=== PATIENT | male | born 2000 | race Caucasian/White ===

== ENCOUNTER 2023-01-23 10:07 | Emergency (ER) | payer OTHER ==
[~2023-01-23] VITALS: Ht 185.4 cm; Wt 88.6 kg
[2023-01-23 10:08] VITALS: BP 122/60; TEMP 98.1
[2023-01-23 12:17] LABS: BASO # 0.1 10^3/uL (0.0-0.2); BASO % 0.7 % (0.0-1.0); EOS # 0.1 10^3/uL (0.0-0.5); EOS % 1.5 % (0.0-3.0); HEMATOCRIT 45.4 % (42.0-52.0); HEMOGLOBIN 15.2 g/dl (13.5-17.5); LYMPH # 2.5 10^3/uL (1.5-5.0); LYMPH % 33.7 % (24.0-44.0); MEAN CORPUSCULAR HEMOGLOBIN 30.5 pg (27.0-33.0); MEAN CORPUSCULAR HGB CONC 33.5 g/dl (32.0-36.5); MEAN CORPUSCULAR VOLUME 91.2 fl (80.0-96.0); MONO # 0.4 10^3/uL (0.0-0.8); MONO % 5.9 % (2.0-8.0); NEUTROPHILS # 4.4 10^3/uL (1.5-8.5); NEUTROPHILS % 58.1 % (36.0-66.0); PLATELET COUNT, AUTOMATED 251 10^3/uL (150-450); RED BLOOD COUNT 4.98 10^6/uL (4.30-6.10); WHITE BLOOD COUNT 7.5 10^3/uL (4.0-10.0)
[2023-01-23 12:39] LABS: LIPASE 29 U/L (12-53)
[2023-01-23 12:41] LABS: ALBUMIN 4.3 G/DL (3.2-5.2); ALKALINE PHOSPHATASE 103 U/L (46-116); ALT/SGPT 18 U/L (7.0-40); AST/SGOT 12 U/L (<34); BILIRUBIN,DIRECT 0.3 MG/DL (<0.4); BILIRUBIN,TOTAL 0.7 MG/DL (0.3-1.2); BLOOD UREA NITROGEN 10 MG/DL (9-23); CALCIUM LEVEL 9.3 MG/DL (8.5-10.1); CARBON DIOXIDE LEVEL 30 MMOL/L (20-31); CHLORIDE LEVEL 105 MMOL/L (98-107); CREATININE FOR GFR 0.99 MG/DL (0.70-1.30); GLUCOSE, FASTING 86 MG/DL (60-100); POTASSIUM SERUM 4.2 MMOL/L (3.5-5.1); SODIUM LEVEL 140 MMOL/L (136-145); TOTAL PROTEIN 7.1 G/DL (5.7-8.2)
[2023-01-23] MEDS ORDERED: ISOVUE-370 76% 100ML VIAL As Ordered ONE (13:27)
[2023-01-23 15:26] VITALS: O2SAT 98
== END 2023-01-23 15:02 | disposition home or self-care (01) ==
LOC: M ED 10:07
DX: R10.31 Right lower quadrant pain (principal); F17.200 Nicotine dependence, unspecified, uncomplicated
CPT/HCPCS: 36415; 74177; 80048; 80076; 83690; 85025; 99284; Q9967

== ENCOUNTER → 2023-09-05 | Outpatient (CLI) | payer OTHER ==
[~2023-09-05] MED LIST: ISOVUE-300 61% 100ML VIAL As Ordered ONE; LIDOCAINE 1% MDV 20ML VIAL As Ordered ONE; PROHANCE 279.3MG/ML 5ML VIAL As Ordered ONE
== END ==
LOC: M RAD 12:25
PROVIDERS: ATTEND Physician Assistant Surgical
DX: M24.111 Other articular cartilage disorders, right shoulder (principal); M25.811 Other specified joint disorders, right shoulder
CPT/HCPCS: 23350; 73223; 77002; A9576; Q9967

== ENCOUNTER 2023-12-13 06:09 | Day surgery (SDC) | payer OTHER ==
[~2023-12-13] VITALS: Ht 185.4 cm; Wt 89.4 kg
[~2023-12-13 06:09] MED LIST changes: -ISOVUE-300 61% 100ML VIAL As Ordered ONE; -LIDOCAINE 1% MDV 20ML VIAL As Ordered ONE; -PROHANCE 279.3MG/ML 5ML VIAL As Ordered ONE; +TRANEXAMIC ACID 100 MG/ML 10ML VIAL IV ONE
[2023-12-13] MEDS ORDERED: LR 1,000 ML IV SCH ×2 (06:35→12:00)
[2023-12-13] MEDS: LIDOCAINE 1% SDV 5ML VIAL PN ONE (07:10)
[2023-12-13] MEDS: dexAMETHasone 10MG/1ML VIAL PRES.FREE PN ONE (07:10)
[2023-12-13] MEDS: ROPIvacaine 0.5% 30ML VIAL PN ONE (07:10)
[2023-12-13] MEDS ORDERED: propofoL 200 MG/20 ML VIAL As Ordered ONE (07:11)
[2023-12-13] MEDS ORDERED: ROCURONIUM BROMIDE 50MG/5ML VIAL As Ordered ONE (07:11)
[2023-12-13] MEDS ORDERED: MIDAZOLAM INJ 2MG/2ML VIAL As Ordered ONE (07:11)
[2023-12-13] MEDS ORDERED: fentaNYL 250 MCG/5 ML INJECTION As Ordered ONE (07:11)
[2023-12-13] MEDS ORDERED: LIDOCAINE 2% 100MG/5ML SDV (FOR ANES.) As Ordered ONE (07:11)
[2023-12-13] MEDS: EPINEPHrine INJ 1 MG/ML 1ML AMP As Ordered ONE (07:15)
[2023-12-13] MEDS: MIDAZOLAM INJ 2MG/2ML VIAL IV PRN (07:18)
[2023-12-13] MEDS: fentaNYL 100 MCG/2 ML INJECTION IV PRN (07:18)
[2023-12-13] MEDS: VANCOMYCIN 500MG/10ML VIAL As Ordered ONE (07:19)
[2023-12-13] MEDS ORDERED: VANCOMYCIN 1000MG/20ML VIAL As Ordered ONE (07:33)
[2023-12-13] MEDS: ceFAZolin SOD 2 GM in IV 1 EA IV ONE (08:50)
[2023-12-13] MEDS: TRANEXAMIC ACID 100 MG/ML 10ML VIAL As Ordered ONE (09:04)
[2023-12-13] MEDS ORDERED: ACETAMINOPHEN 1000MG 100ML IV BAG As Ordered ONE (09:27)
[2023-12-13] MEDS ORDERED: SUGAMMADEX SODIUM 500 MG/5 ML VIAL (BRIDION) As Ordered ONE (09:27)
[2023-12-13] MEDS ORDERED: ONDANSETRON 4MG 2ML VIAL As Ordered ONE (09:28)
[2023-12-13] MEDS ORDERED: PHENYLephrine 500MCG 5ML (100MCG/ML) SYRINGE As Ordered ONE (10:02)
[2023-12-13] MEDS: EPINEPHrine 1MG/ML INJ 30ML MD-VIAL As Ordered ONE (11:33)
[2023-12-13] MEDS ORDERED: HYDROMORPHONE HCL 0.5 MG/ 0.5 ML SYRINGE IV PRN (12:00)
[2023-12-13] MEDS ORDERED: fentaNYL 100 MCG/2 ML INJECTION IV PRN (12:00)
[2023-12-13] MEDS ORDERED: oxyCODONE 5MG TAB PO PRN (12:00)
[2023-12-13] MEDS: ONDANSETRON 4MG 2ML VIAL IV PRN (12:24)
[2023-12-13] MEDS: METOCLOPRAMIDE INJ 10MG/2ML VIAL IV ONE (12:40)
[2023-12-13] MEDS: diphenhydrAMINE 50MG/ML VIAL IV PRN (13:30)
[2023-12-13 15:00] VITALS: BP 130/70; TEMP 97.6; O2SAT 100
== END 2023-12-13 15:25 | disposition home or self-care (01) ==
LOC: M SDC 06:09
PROVIDERS: ATTEND Orthopaedic Surgery
DX: S43.431A Superior glenoid labrum lesion of right shoulder, initial encounter (principal); M19.011 Primary osteoarthritis, right shoulder; M65.9 Synovitis and tenosynovitis, unspecified; M75.51 Bursitis of right shoulder; X50.0XXA Overexertion from strenuous movement or load, initial encounter; Y93.89 Activity, other specified; Y92.9 Unspecified place or not applicable
CPT/HCPCS: 29807; 29827; C1713; J0131; J0171; J0690; J1100; J1200; J2250; J2371; J2405; J2765; J3010; J3370